=== PATIENT | female | born 1960 | race Caucasian/White ===

== ENCOUNTER 2017-01-16 14:46 | Emergency (ER) | payer OTHER ==
[2017-01-16 14:54] VITALS: BP 108/72; PULSE 64; TEMP 97.9; O2SAT 99
--- NOTE | 2017-01-16 15:11 | C.PDOC ---
History Of Present Illness 56 yo female come in for evaluation of pain over left lower gums gradually worsen for past 2 weeks. Pt denies known trauma or injury, fever, chills, facial swelling, trismus, drooling, headache, dizziness, earache, or any other active complaints. Pt admits, last visit to dentist was 3 weeks ago. Time Seen by Provider: 01/16/17 15:02 Chief Complaint (Nursing): Abnormal Skin Integrity History Per: Patient Onset/Duration Of Symptoms: Gradual Current Symptoms Are (Timing): Worse Past Medical History Reviewed: Historical Data, Nursing Documentation, Vital Signs Vital Signs: Last Vital Signs Temp 97.9 F 01/16/17 14:53 Pulse 64 01/16/17 14:53 Resp 18 01/16/17 14:53 BP 108/72 01/16/17 14:53 Pulse Ox 99 01/16/17 15:14 - Medical History PMH: Arthritis, Gastritis Family History: States: No Known Family Hx - Social History Hx Tobacco Use: No Hx Alcohol Use: No Hx Substance Use: No - Immunization History Hx Tetanus Toxoid Vaccination: No Hx Influenza Vaccination: No Hx Pneumococcal Vaccination: No Review Of Systems Except As Marked, All Systems Reviewed And Found Negative. Constitutional: Negative for: Fever, Chills ENT: Positive for: Mouth Pain. Negative for: Ear Discharge, Nose Discharge, Nose Congestion, Mouth Swelling, Throat Pain, Throat Swelling Cardiovascular: Negative for: Chest Pain Respiratory: Negative for: Cough, Shortness of Breath, Wheezing Gastrointestinal: Negative for: Nausea, Vomiting Skin: Negative for: Rash Neurological: Negative for: Weakness, Numbness, Altered Mental Status, Headache , Dizziness Physical Exam - Physical Exam Appears: Well, Non-toxic, No Acute Distress Skin: Normal Color, Warm Head: Normacephalic Eye(s): bilateral: Normal Inspection Ear(s): Bilateral: Normal Nose: Normal, No Discharge Oral Mucosa: Moist, No Drooling Tongue: Normal Appearing Lips: Normal Appearing Teeth: Dentures, No Tender To Palpation Gingiva: Ulceration (Left lower 2nd molar small ulcer inner gingiva. No edema, no erythema.), No Abscess Throat: Normal, No Erythema, No Exudate, No Drooling, Other (uvula midline, no edema.) Neck: Normal, Normal ROM, Supple Respiratory: Normal Breath Sounds, No Stridor, No Wheezing Extremity: Normal ROM, No Pedal Edema Neurological/Psych: Oriented x3, Normal Speech ED Course And Treatment O2 Sat by Pulse Oximetry: 99 Pulse Ox Interpretation: Normal Progress Note: On re-eavl, pt is afebrile, hemodynamicaly stable. Non-toxic. PulsEOx 99% RA. Neck: (-) meningeal sign. ENT: exam c/w Left lower gum tender ulcer. Lungs: CTA B/L, BS equal B/L. Pt advised and ref. to F/u with Dentist in 2-3 days for re-evaluation. Return to ED if any worsening or new changes. Disposition Counseled Patient/Family Regarding: Diagnosis, Need For Followup, Rx Given - Disposition Referrals: [facility] [Provider Group] [facility] [Provider Group] Disposition: HOME/ ROUTINE Disposition Time: 15:12 Condition: STABLE Additional Instructions: Avoid hot/ spicy food Use mouth wash as prescribed pain medication as need Follow up with dentist in 2-3 days for re-evaluation. Return to Ed if any new changes. Prescriptions: Chlorhexidine Gluconate [Peridex 473 ml] 5 ml PO TID #1 bottle traMADol [Ultram] 50 mg PO TID #7 tab Instructions: Gingivostomatitis (ED) - Clinical Impression Clinical Impression: Gingivostomatitis
[2017-01-16 15:26] VITALS: RESP 20
== END 2017-01-16 15:25 | disposition home or self-care (01) ==
LOC: C.ER 14:46
DX: K05.10 Chronic gingivitis, plaque induced (principal)

== ENCOUNTER 2017-03-06 21:15 | Emergency (ER) | payer OTHER ==
[2017-03-06 21:35] VITALS: RESP 16; TEMP 98; O2SAT 100
--- NOTE | 2017-03-06 21:54 | C.PDOC ---
History Of Present Illness 57 year old patient, with a past medical history of gastritis, presents to the ED complaining of fatigue for the past week. Patient also complains of left sided abdominal pain since yesterday. She has discomfort in the suprapubic area with associated symptom of burning with urination. Patient denies fever, chills , nausea, vomiting, numbness, weakness or incontinence. She states the pain is constant at this time. She had a normal bowel movement this afternoon and has been able toeat and drink without difficulty. Time Seen by Provider: 03/06/17 21:38 Chief Complaint (Nursing): Abdominal Pain History Per: Patient History/Exam Limitations: no limitations Onset/Duration Of Symptoms: Worse Since (yesterday), Other (past week) Current Symptoms Are (Timing): Still Present Context: Other Severity: Mild Pain Scale Rating Of: 3 Location Of Pain/Discomfort: Suprapubic Radiation Of Pain To:: None Quality Of Discomfort: "Pain" Associated Symptoms: Urinary Symptoms Exacerbating Factors: None Alleviating Factors: None Last Bowel Movement: Today Recent travel outside of the [place]: No Abnormal Vaginal Bleeding: No Past Medical History Reviewed: Historical Data, Nursing Documentation, Vital Signs Vital Signs: Last Vital Signs Temp 98.0 F 03/06/17 21:32 Pulse 70 03/07/17 00:00 Resp 16 03/07/17 00:00 BP 118/74 03/07/17 00:00 Pulse Ox 100 03/07/17 00:04 - Medical History PMH: Arthritis, Gastritis Family History: States: Unknown Family Hx - Social History Hx Tobacco Use: No Hx Alcohol Use: Yes Hx Substance Use: No - Immunization History Hx Tetanus Toxoid Vaccination: No Hx Influenza Vaccination: No Hx Pneumococcal Vaccination: No Review Of Systems Except As Marked, All Systems Reviewed And Found Negative. Constitutional: Positive for: Other (fatigue). Negative for: Fever, Chills Gastrointestinal: Positive for: Abdominal Pain (suprapubic). Negative for: Nausea, Vomiting Genitourinary: Positive for: Dysuria. Negative for: Incontinence Neurological: Negative for: Weakness, Numbness Physical Exam - Physical Exam Appears: Non-toxic, No Acute Distress Skin: Warm, Dry Head: Atraumatic, Normacephalic Eye(s): bilateral: Normal Inspection, PERRL, EOMI Ear(s): Bilateral: Normal Nose: Normal Oral Mucosa: Moist Throat: Normal Neck: Normal ROM, Supple Chest: Symmetrical Cardiovascular: Rhythm Regular Respiratory: Normal Breath Sounds, No Rales, No Rhonchi, No Wheezing Gastrointestinal/Abdominal: Bowel Sounds (normal), Soft, Tenderness (mild suprapubic and LLQ tenderness), No Guarding, No Rebound, Other ((+)mild tenderness to left mid to lower hypogastrium; (-)rigidity) Back: Normal Inspection, No CVA Tenderness Extremity: Normal ROM Neurological/Psych: Oriented x3, Normal Motor, Normal Sensation Gait: Steady ED Course And Treatment - Laboratory Results Result Diagrams: 03/06/17 21:57 03/06/17 21:57 Lab Interpretation: Normal O2 Sat by Pulse Oximetry: 100 (room air) Pulse Ox Interpretation: Normal Progress Note: Patient states she continues to have LLQ pain. Ct abdomen and pelvis ordered. Medical Decision Making Medical Decision Making: Plan: * Labs Disposition - Disposition Disposition Time: 00:16 Condition: STABLE - Clinical Impression Clinical Impression: Abdominal pain - Scribe Statement The provider has reviewed the documentation as recorded by the Scribra Arnold Provider Attestation: All medical record entries made by the Scribe were at my direction and personally dictated by me. I have reviewed the chart and agree that the record accurately reflects my personal performance of the history, physical exam, medical decision making, and the department course for this patient. I have also personally directed, reviewed, and agree with the discharge instructions and disposition. Physician Patient Turnover Patient Signed Over To: Junior García Handoff Comments: pending CT
[2017-03-06 22:01] LABS: BASO # 0.1 K/uL (0.0-0.2); BASO % 0.8 % (0.0-2.0); EOS # 0.3 K/uL (0.0-0.7); EOS % 3.5 % (0.0-4.0); HEMATOCRIT 38.1 % (34.0-47.0); LYMPH # 3.9 K/uL (1.0-4.3); LYMPH % 44.9 % (20.0-40.0); MEAN CORPUSCULAR HEMOGLOBIN 28.3 pg (27.0-31.0); MEAN CORPUSCULAR HGB CONC 32.9 g/dL (33.0-37.0); MEAN PLATELET VOLUME 8.9 fL (7.2-11.7); MONO # 0.8 K/uL (0.0-0.8); MONO % 8.7 % (0.0-10.0); WHITE BLOOD COUNT 8.8 K/uL (4.8-10.8)
[2017-03-06 22:08] LABS: CHLORIDE 98 mmol/L (98-107); RBC URINE < 1 /hpf (0-3); URINE BILIRUBIN NEGATIVE (NEGATIVE); URINE BLOOD 1+ (NEGATIVE); URINE COLOR Straw (YELLOW); URINE GLUCOSE (UA) NORMAL (Normal); URINE KETONE NEGATIVE (NEGATIVE); URINE LEUKOCYTE ESTERASE NEG Leu/uL (Negative); URINE PROTEIN NEGATIVE (NEGATIVE); URINE UROBILINOGEN NORMAL mg/dL (0.2-1.0); WBC URINE 2 /hpf (0-5)
[2017-03-06 22:09] LABS: SODIUM 135 mmol/L (132-148)
[2017-03-06 22:11] LABS: ALKALINE PHOSPHATASE 67 U/L (38-126); ALT/SGPT 29 U/L (9-52); AST/SGOT 28 U/L (14-36); BILIRUBIN,TOTAL 0.5 mg/dL (0.2-1.3); BLOOD UREA NITROGEN 19 mg/dL (7-17); CARBON DIOXIDE 28 mmol/L (22-30); GFR AFRICAN-AMERICAN > 60; GLUCOSE,RANDOM 109 mg/dL (65-105); TOTAL PROTEIN 7.2 g/dL (6.3-8.3)
[2017-03-06 22:12] LABS: CALCIUM 8.2 mg/dl (8.6-10.4)
[2017-03-06] MEDS ORDERED: Iohexol 240 (50 ml) PO ONE (22:17)
[2017-03-06] MEDS ORDERED: Iohexol 240 (50 ml) ONE (22:30)
[2017-03-06] MEDS ORDERED: Iodixanol 320 MG/ML 100 ML BOTTLE IV ONE (23:20)
[2017-03-07 00:14] VITALS: BP 118/74; PULSE 70
--- NOTE | 2017-03-07 00:35 | CT ---
EXAM: CT Abdomen and Pelvis With Intravenous Contrast CLINICAL HISTORY: 57 years old, female; Pain; Abdominal pain; Flank; Left; Additional info: Llq pain TECHNIQUE: Axial computed tomography images of the abdomen and pelvis with intravenous contrast. This CT exam was performed using one or more of the following dose reduction techniques: automated exposure control, adjustment of the mA and/or kV according to patient size, and/or use of iterative reconstruction technique. Coronal and sagittal reformatted images were created and reviewed. CONTRAST: 100 mL of visipaque administered intravenously. COMPARISON: No relevant prior studies available. FINDINGS: Lower thorax: The bilateral lung bases are clear. ABDOMEN: Liver: No acute findings. Gallbladder and bile ducts: The gallbladder is only minimally distended, without calcified stones. No significant intra- or extrahepatic biliary ductal dilation. Pancreas: Enhances homogeneously. No ductal dilation. No discrete mass. Spleen: No acute findings. Adrenals: No acute findings. Kidneys and ureters: No acute findings. No hydronephrosis or renal calculi. No discrete solid mass. PELVIS: Bladder: No acute findings. Reproductive: The uterus is heterogeneous and nodular, for which dedicated ultrasound would provide additional information. The uterus extends to the left of midline, is anteverted and larger than one would expect for a patient of this age. Appendix: The appendix is not definitively visualized, however no pericecal inflammatory changes identified to suggest the presence of acute appendicitis. ABDOMEN and PELVIS: Stomach and bowel: No obstruction. Small bowel wall thickening but no surrounding inflammation or fluid to confirm an acute enteritis. Peritoneum: No significant fluid collection. No free air. Lymph nodes: No pathologically enlarged lymph nodes. Vasculature: Unremarkable. Bones: No acute fracture. IMPRESSION: Enlarged, heterogeneous and nodular uterus, for which dedicated pelvic ultrasound is suggested for further evaluation. Mural thickening within multiple loops of small bowel within the mid to upper abdomen, to the left of midline, without surrounding inflammation or fluid to confirm an enteritis.
== END 2017-03-07 01:15 | disposition home or self-care (01) ==
LOC: C.ER 21:15
DX: R10.32 Left lower quadrant pain (principal)
CPT/HCPCS: 74177; 80053; 81001; 85025; 87086; 99283; Q9966; Q9967

== ENCOUNTER 2017-03-29 11:24 | Emergency (ER) | payer OTHER ==
[2017-03-29 11:40] VITALS: RESP 20
[2017-03-29 12:12] LABS: RBC URINE 2 /hpf (0-3); URINE BILIRUBIN NEGATIVE (NEGATIVE); URINE BLOOD NEGATIVE (NEGATIVE); URINE COLOR Yellow (YELLOW); URINE GLUCOSE (UA) NORMAL (Normal); URINE KETONE NEGATIVE (NEGATIVE); URINE LEUKOCYTE ESTERASE NEG Leu/uL (Negative); URINE PROTEIN NEGATIVE (NEGATIVE); URINE UROBILINOGEN NORMAL mg/dL (0.2-1.0); WBC URINE 1 /hpf (0-5)
[2017-03-29] MEDS ORDERED: Sodium Chloride 0.9% 500 ML IV ONE (12:31)
--- NOTE | 2017-03-29 12:33 | C.PDOC ---
History Of Present Illness 57 y/o female presents to ED with complaints of left flank pain associated with burning sensation on urination and urinary frequency for 2 weeks. Patient also complains of bilateral leg swelling and sore throat. Denies any past medical problems. Otherwise, denies fevers, chills, cough, nausea, vomiting, or other associated symptoms. Time Seen by Provider: 03/29/17 12:08 Chief Complaint (Nursing): Female Genitourinary History Per: Patient History/Exam Limitations: no limitations Onset/Duration Of Symptoms: Days Current Symptoms Are (Timing): Still Present Recent travel outside of the [place]: No Past Medical History Reviewed: Historical Data, Nursing Documentation, Vital Signs Vital Signs: Last Vital Signs Temp 98 F 03/29/17 14:53 Pulse 60 03/29/17 14:53 Resp 20 03/29/17 14:53 BP 124/84 03/29/17 14:53 Pulse Ox 98 03/29/17 15:13 - Medical History PMH: Arthritis, Gastritis Family History: States: No Known Family Hx - Social History Hx Tobacco Use: No Hx Alcohol Use: Yes Hx Substance Use: No - Immunization History Hx Tetanus Toxoid Vaccination: No Hx Influenza Vaccination: No Hx Pneumococcal Vaccination: No Review Of Systems Except As Marked, All Systems Reviewed And Found Negative. Constitutional: Negative for: Fever ENT: Positive for: Throat Pain Cardiovascular: Negative for: Chest Pain Respiratory: Negative for: Cough, Shortness of Breath Gastrointestinal: Positive for: Other (flank pain ) Genitourinary: Positive for: Dysuria, Frequency Musculoskeletal: Negative for: Neck Pain Skin: Negative for: Rash Neurological: Negative for: Headache, Dizziness Physical Exam - Physical Exam Appears: Non-toxic, No Acute Distress Skin: Warm, Dry, No Rash Head: Atraumatic, Normacephalic Eye(s): bilateral: Normal Inspection, PERRL, EOMI Ear(s): Bilateral: Normal Nose: Normal Oral Mucosa: Moist Throat: Erythema (scant, pharyngeal), No Exudate, No Drooling Neck: Supple Chest: Symmetrical Cardiovascular: Rhythm Regular, No Friction Rub, No Murmur Respiratory: Normal Breath Sounds, No Rales, No Rhonchi, No Wheezing Gastrointestinal/Abdominal: Soft, No Tenderness, No Guarding, No Rebound, No Hernia Back: Normal Inspection, No CVA Tenderness Extremity: Normal ROM, Capillary Refill (< 2 sec. ) Neurological/Psych: Oriented x3, Normal Speech, Normal Cognition, Normal Motor Gait: Steady ED Course And Treatment - Laboratory Results Result Diagrams: 03/29/17 12:56 03/29/17 12:56 O2 Sat by Pulse Oximetry: 98 (RA) Pulse Ox Interpretation: Normal - CT Scan/US Chest X-Ray Other Rad Studies (CT/US): Read By Radiologist, Radiology Report Reviewed CT/US Interpretation: MPRESSION: No focal consolidation, significant pleural effusion, or definite pneumothorax identified. Left upper lobe opacity may reflect calcification or ossific excrescence at the level of the 1st anterior rib. Outpatient CT of the chest may be considered for further evaluation if indicated. Progress Note: Treated with Toradol, Tylenol and IVFs. Labs, CXR ordered and reviewed. Medical Decision Making Medical Decision Making: On re-exam, the patient reports improvement of symptoms. Lungs are CTA, heart is RRR, abdomen is soft, non-tender and patient is tolerating PO well. Ambulatory in the ED with steady gait. Follow up with the medical doctor within 1-2 days. Return if worsened. Disposition - Disposition Referrals: [facility] [Outside] Disposition: HOME/ ROUTINE Disposition Time: 15:07 Condition: GOOD Additional Instructions: Follow up with the medical doctor within 1-2 days. Return if worsened. Prescriptions: Azithromycin [Zithromax] 250 mg PO DAILY #6 tab Ibuprofen [Motrin] 600 mg PO TID #21 tab predniSONE [Prednisone] 10 mg PO BID #10 tab Instructions: Pharyngitis (ED), Viral Syndrome (ED) Print Language: YAKUT - Clinical Impression Clinical Impression: Pharyngitis, Leg edema - PA / [employer]NA[employer] / Resident Statement MD/DO has reviewed & agrees with the documentation as recorded. - Scribe Statement The provider has reviewed the documentation as recorded by the Kulwinder Hu All medical record entries made by the Kulwinder were at my direction and personally dictated by me. I have reviewed the chart and agree that the record accurately reflects my personal performance of the history, physical exam, medical decision making, and the department course for this patient. I have also personally directed, reviewed, and agree with the discharge instructions and disposition.
[2017-03-29] MEDS ORDERED: Sodium Chloride 0.9% 1,000 ML ONE (12:59)
--- NOTE | 2017-03-29 12:59 | RAD ---
HISTORY: leg swelling, pain COMPARISON: Chest x-ray performed 07/22/16 TECHNIQUE: Chest, one view. FINDINGS: LUNGS: No focal consolidation. Left upper lobe opacity may reflect calcification or ossific excrescence at the level of the 1st anterior rib. Please note that chest x-ray has limited sensitivity for the detection of pulmonary masses. PLEURA: No significant pleural effusion identified. No definite pneumothorax . CARDIOVASCULAR: The cardiomediastinal silhouette appears within normal limits of size. OSSEOUS STRUCTURES: Degenerative changes of the spine. VISUALIZED UPPER ABDOMEN: Unremarkable. OTHER FINDINGS: None. IMPRESSION: No focal consolidation, significant pleural effusion, or definite pneumothorax identified. Left upper lobe opacity may reflect calcification or ossific excrescence at the level of the 1st anterior rib. Outpatient CT of the chest may be considered for further evaluation if indicated.
[2017-03-29 13:01] LABS: BASO % 0.4 % (0.0-2.0); EOS # 0.1 K/uL (0.0-0.7); EOS % 1.4 % (0.0-4.0); HEMATOCRIT 39.1 % (34.0-47.0); LYMPH # 2.1 K/uL (1.0-4.3); LYMPH % 23.1 % (20.0-40.0); MEAN CELL VOLUME 85.9 fL (81.0-99.0); MEAN CORPUSCULAR HGB CONC 32.6 g/dL (33.0-37.0); MEAN PLATELET VOLUME 9.4 fL (7.2-11.7); MONO # 0.8 K/uL (0.0-0.8); MONO % 8.5 % (0.0-10.0); RED CELL DISTRIBUTION WIDTH 13.9 % (11.5-14.5); WHITE BLOOD COUNT 9.2 K/uL (4.8-10.8)
[2017-03-29 13:21] LABS: CHLORIDE 100 mmol/L (98-107); SODIUM 136 mmol/L (132-148)
[2017-03-29 13:23] LABS: AST/SGOT 23 U/L (14-36); BILIRUBIN,TOTAL 0.4 mg/dL (0.2-1.3); CARBON DIOXIDE 27 mmol/L (22-30); GFR AFRICAN-AMERICAN > 60
[2017-03-29 13:24] LABS: ALB/GLOB RATIO 0.9 (1.0-2.1); ALKALINE PHOSPHATASE 69 U/L (38-126); ALT/SGPT 30 U/L (9-52); BLOOD UREA NITROGEN 14 mg/dL (7-17); CALCIUM 8.6 mg/dl (8.6-10.4); GLUCOSE,RANDOM 81 mg/dL (65-105); TOTAL PROTEIN 7.1 g/dL (6.3-8.3)
[2017-03-29 13:36] VITALS: PULSE 60
[2017-03-29 14:54] VITALS: BP 124/84; TEMP 98
[2017-03-29 15:12] VITALS: O2SAT 98
== END 2017-03-29 15:16 | disposition home or self-care (01) ==
LOC: C.ER 11:24
DX: J02.9 Acute pharyngitis, unspecified (principal); R60.0 Localized edema
CPT/HCPCS: 71010; 80053; 81001; 83690; 83880; 85025; 96361; 96374; 99284; J1885; J7040

== ENCOUNTER 2017-06-24 20:00 | Emergency (ER) | payer SELFPAY ==
[2017-06-24 20:13] VITALS: O2SAT 96
[2017-06-24 20:50] LABS: URINE BILIRUBIN NEGATIVE (NEGATIVE); URINE BLOOD 1+ (NEGATIVE); URINE COLOR Straw (YELLOW); URINE GLUCOSE (UA) NORMAL (Normal); URINE KETONE NEGATIVE (NEGATIVE); URINE LEUKOCYTE ESTERASE NEG Leu/uL (Negative); URINE PROTEIN NEGATIVE (NEGATIVE); URINE UROBILINOGEN NORMAL mg/dL (0.2-1.0); WBC URINE < 1 /hpf (0-5)
[2017-06-24 20:56] LABS: RBC URINE 5 /hpf (0-3); URINE BACTERIA OCC (<OCC)
--- NOTE | 2017-06-24 20:57 | C.PDOC ---
History Of Present Illness Patient is a 57 y/o female who presents to the ED with complaints of right sided flank pain radiating to right suprapubic region for the past 3 days. Patient states pain worsens with urination associated with no hematuria. Patient also admits to right sided dental pain. Denies fever, nausea, or vomiting. Chief Complaint (Nursing): Female Genitourinary History Per: Patient History/Exam Limitations: no limitations Onset/Duration Of Symptoms: Days (x3 days. ) Current Symptoms Are (Timing): Still Present Associated Symptoms: Urinary Symptoms (hematuria and dysuria. ). denies: Fever , Nausea, Vomiting Recent travel outside of the [place]: No Past Medical History Reviewed: Historical Data, Nursing Documentation, Vital Signs Vital Signs: Last Vital Signs Temp 98.0 F 06/24/17 20:12 Pulse 76 06/24/17 20:12 Resp 16 06/24/17 20:12 BP 99/73 L 06/24/17 20:12 Pulse Ox 96 06/24/17 23:14 - Medical History PMH: Arthritis, Gastritis Surgical History: No Surg Hx Family History: States: Unknown Family Hx - Social History Hx Tobacco Use: No Hx Alcohol Use: Yes Hx Substance Use: No - Immunization History Hx Tetanus Toxoid Vaccination: No Hx Influenza Vaccination: No Hx Pneumococcal Vaccination: No Review Of Systems Constitutional: Negative for: Fever Cardiovascular: Negative for: Chest Pain Respiratory: Negative for: Shortness of Breath Gastrointestinal: Negative for: Nausea, Vomiting, Diarrhea Genitourinary: Positive for: Dysuria, Hematuria Physical Exam - Physical Exam Appears: Well, Non-toxic Skin: Normal Color, Warm, Dry, No Diaphoretic Head: Atraumatic, Normacephalic Oral Mucosa: Moist Gingiva: Erythema (upper lateral areas. ) Chest: Symmetrical Cardiovascular: Rhythm Regular, No Murmur Respiratory: Normal Breath Sounds, No Rales, No Rhonchi, No Wheezing Gastrointestinal/Abdominal: Soft, No Tenderness Back: CVA Tenderness (bilateral) Extremity: Normal ROM (x4) Neurological/Psych: Oriented x3, Normal Speech, Normal Cognition ED Course And Treatment - Laboratory Results Result Diagrams: 06/24/17 22:23 06/24/17 22:23 O2 Sat by Pulse Oximetry: 96 (room air) Pulse Ox Interpretation: Normal - CT Scan/US A/P Other Rad Studies (CT/US): Interpreted By Me, Read By Radiologist CT/US Interpretation: IMPRESSION: No evidence for bowel herniation, bowel obstruction, colitis, appendicitis or diverticulitis. No gross ureteral stone or obstructive uropathy is visualized. Disposition Counseled Patient/Family Regarding: Diagnosis - Disposition Referrals: [facility] [Outside] Disposition: HOME/ ROUTINE Disposition Time: 23:26 Condition: STABLE Additional Instructions: warm saline gargle, ff up with dentist Prescriptions: Amoxicillin [Amoxil 500 mg Cap] 500 mg PO Q8 #20 cap Ibuprofen [Motrin] 1 tab PO TID PRN #30 tab PRN Reason: Pain Instructions: Flank Pain (ED), Urinary Tract Infection in Women (ED), Gingivitis (ED) Forms: [facility] (Maori), Gen Discharge Inst Moldovan Print Language: UPPER SORBIAN - POA Present On Arrival: None - Clinical Impression Clinical Impression: Gingivitis, Urinary tract infection, Flank pain - Scribe Statement The provider has reviewed the documentation as recorded by the Scribra Snow All medical record entries made by the Ranjanaibra were at my direction and personally dictated by me. I have reviewed the chart and agree that the record accurately reflects my personal performance of the history, physical exam, medical decision making, and the department course for this patient. I have also personally directed, reviewed, and agree with the discharge instructions and disposition.
[2017-06-24] MEDS ORDERED: Sodium Chloride 0.9% 1,000 ML IV ONE (22:16)
[2017-06-24] MEDS ORDERED: Sodium Chloride 0.9% 1,000 ML ONE (22:21)
[2017-06-24 22:29] LABS: BASO % 0.6 % (0.0-2.0); EOS # 0.2 K/uL (0.0-0.7); EOS % 2.5 % (0.0-4.0); HEMATOCRIT 36.6 % (34.0-47.0); LYMPH # 2.3 K/uL (1.0-4.3); LYMPH % 34.7 % (20.0-40.0); MEAN CELL VOLUME 85.4 fL (81.0-99.0); MEAN CORPUSCULAR HGB CONC 32.8 g/dL (33.0-37.0); MONO # 0.7 K/uL (0.0-0.8); MONO % 9.6 % (0.0-10.0); RED CELL DISTRIBUTION WIDTH 14.1 % (11.5-14.5); WHITE BLOOD COUNT 6.7 K/uL (4.8-10.8)
[2017-06-24 22:34] LABS: CHLORIDE 104 mmol/L (98-107); SODIUM 137 mmol/L (132-148)
[2017-06-24 22:36] LABS: GFR AFRICAN-AMERICAN > 60
[2017-06-24 22:37] LABS: ALKALINE PHOSPHATASE 64 U/L (38-126); ALT/SGPT 36 U/L (9-52); AST/SGOT 23 U/L (14-36); BILIRUBIN,TOTAL 0.5 mg/dL (0.2-1.3); BLOOD UREA NITROGEN 14 mg/dL (7-17); CARBON DIOXIDE 24 mmol/L (22-30); GLUCOSE,RANDOM 88 mg/dL (65-105); TOTAL PROTEIN 6.8 g/dL (6.3-8.3)
[2017-06-24 22:38] LABS: CALCIUM 8.4 mg/dl (8.6-10.4)
[2017-06-24 23:29] VITALS: BP 109/69; PULSE 56; RESP 17; TEMP 97.5
[2017-06-24] MEDS ORDERED: Amoxicillin-Clav 500-125 mg Tab PO ONE (23:43)
--- NOTE | 2017-06-25 09:15 | CT ---
PROCEDURE: CT Abdomen and Pelvis without intravenous contrast HISTORY: flank pain COMPARISON: 03/07/2017 TECHNIQUE: Without contrast.. Contrast Dose: 0 Radiation dose: Total exam DLP = 398.34 mGy-cm. This CT exam was performed using one or more of the following dose reduction techniques: Automated exposure control, adjustment of the mA and/or kV according to patient size, and/or use of iterative reconstruction technique. FINDINGS: LOWER THORAX: 8 mm pleural-based nodule at left costophrenic sulcus. This is essentially unchanged from prior examination of 03/07/2017. A followup noncontrast chest CT examination is advised 6-12 months. LIVER: Unremarkable. No gross lesion or ductal dilatation. GALLBLADDER AND BILE DUCTS: Unremarkable. PANCREAS: Unremarkable. No gross lesion or ductal dilatation. SPLEEN: Unremarkable. ADRENALS: Unremarkable. No mass. KIDNEYS AND URETERS: Unremarkable. No hydronephrosis. No solid mass. VASCULATURE: Unremarkable. No aortic aneurysm. BOWEL: Unremarkable. No obstruction. No gross mural thickening. APPENDIX: Unremarkable. Normal appendix. PERITONEUM: Unremarkable. No free fluid. No free air. LYMPH NODES: Unremarkable. No enlarged lymph nodes. BLADDER: Unremarkable. REPRODUCTIVE: Normal uterus BONES: No acute fracture. OTHER FINDINGS: None. IMPRESSION: No evidence of urinary calculus or urinary tract obstruction. No evidence of diverticulitis or appendicitis. Incidental 8 mm nodule at left costophrenic sulcus. Followup noncontrast chest CT examination is advised in 6-12 months. Preliminary interpretation of this examination was reported by [facility] at 11:13 p.m. on 06/24/2017. There is discordance of this report with the preliminary interpretation. Left lower lobe pulmonary nodule was not described in the preliminary report of this examination.
== END 2017-06-24 23:56 | disposition home or self-care (01) ==
LOC: C.ER 20:00
DX: N39.0 Urinary tract infection, site not specified (principal); K05.10 Chronic gingivitis, plaque induced; R10.9 Unspecified abdominal pain
CPT/HCPCS: 74176; 80053; 81001; 83690; 84703; 85025; 85610; 85730; 87086; 96374; 99285; J1885; J7040

== ENCOUNTER 2018-05-19 16:35 | Emergency (ER) | payer OTHER ==
[2018-05-19 16:40] VITALS: O2SAT 98
[2018-05-19 17:05] LABS: BASO % 0.5 % (0.0-2.0); EOS # 0.2 K/uL (0.0-0.7); EOS % 2.9 % (0.0-4.0); HEMOGLOBIN 13.2 g/dL (11.0-16.0); LYMPH # 2.6 K/uL (1.0-4.3); LYMPH % 37.5 % (20.0-40.0); MEAN CELL VOLUME 86.4 fL (81.0-99.0); MEAN CORPUSCULAR HEMOGLOBIN 27.8 pg (27.0-31.0); MEAN CORPUSCULAR HGB CONC 32.2 g/dL (33.0-37.0); MEAN PLATELET VOLUME 8.8 fL (7.2-11.7); MONO # 0.6 K/uL (0.0-0.8); MONO % 8.1 % (0.0-10.0); NEUT # 3.5 K/uL (1.8-7.0); NRBC % 0.1 % (0.0-2.0); RBC 4.74 Mil/uL (3.80-5.20); RED CELL DISTRIBUTION WIDTH 13.4 % (11.5-14.5)
[2018-05-19] MEDS ORDERED: DiphenhydrAMINE 50 mg/ml Inj IVP STA (17:07)
[2018-05-19] MEDS ORDERED: Sodium Chloride 0.9% 1,000 ML IV STA (17:07)
[2018-05-19 17:09] LABS: SQUAMOUS EPITHIAL 5 /hpf (0-5); URINE BILIRUBIN NEGATIVE (NEGATIVE); URINE BLOOD NEGATIVE (NEGATIVE); URINE CLARITY Clear (Clear); URINE COLOR Straw (YELLOW); URINE GLUCOSE (UA) NORMAL (Normal); URINE LEUKOCYTE ESTERASE 2+ Leu/uL (Negative); URINE PROTEIN NEGATIVE (NEGATIVE); URINE UROBILINOGEN NORMAL mg/dL (0.2-1.0)
[2018-05-19 17:23] LABS: ALB/GLOB RATIO 1.2 (1.0-2.1); ALBUMIN 3.9 g/dL (3.5-5.0); ALT/SGPT 31 U/L (9-52); AMYLASE 58 U/L (30-110); AST/SGOT 23 U/L (14-36); BLOOD UREA NITROGEN 14 mg/dL (7-17); CALCIUM 9.1 mg/dl (8.6-10.4); GFR AFRICAN-AMERICAN > 60; GFR NON-AFRICAN AMERICAN > 60
[2018-05-19] MEDS ORDERED: Sodium Chloride 0.9% 1,000 ML ONE (17:23)
[2018-05-19] MEDS ORDERED: DiphenhydrAMINE 50 mg/ml Inj ONE (17:24)
--- NOTE | 2018-05-19 18:33 | C.PDOC ---
History Of Present Illness 58 year old female patient presents to the ER with c/o rashes. Patient states the rashes appear on her left side of face and diffuse rash on extremities for a week. Patient reports she went to the pharmacy and they gave her benadryl and steroid cream which brought no relief. Patient states rash is very pruritic . Denies fever, SOB, chills. Patient denies eating any new food, taking new medications, using any new skin products. Time Seen by Provider: 05/19/18 16:43 Chief Complaint (Nursing): Abnormal Skin Integrity History Per: Patient History/Exam Limitations: no limitations Onset/Duration Of Symptoms: Days (x1 week) Current Symptoms Are (Timing): Still Present Location Of Injury: Right: Arm, Forearm, Hand, Left: Arm, Face, Forearm, Hand Quality Of Symptoms: Itching Past Medical History Reviewed: Historical Data, Nursing Documentation, Vital Signs Vital Signs: Last Vital Signs Temp 98 F 05/19/18 19:27 Pulse 68 05/19/18 19:27 Resp 18 05/19/18 19:27 BP 117/71 05/19/18 19:27 Pulse Ox 98 05/19/18 19:27 - Medical History PMH: Arthritis, Gastritis Family History: States: Unknown Family Hx - Social History Hx Tobacco Use: No Hx Alcohol Use: Yes Hx Substance Use: No - Immunization History Hx Tetanus Toxoid Vaccination: No Hx Influenza Vaccination: No Hx Pneumococcal Vaccination: No Review Of Systems Except As Marked, All Systems Reviewed And Found Negative. Constitutional: Negative for: Fever, Chills Respiratory: Negative for: Shortness of Breath, Other (allergic reactions) Physical Exam - Physical Exam Appears: Well, Non-toxic, No Acute Distress Skin: Warm, Dry, Rash (erythematous maculo-papular rash on the left side of face and diffuse extremeties) Head: Atraumatic, Normacephalic Eye(s): bilateral: Normal Inspection Ear(s): Bilateral: Normal Neck: Normal ROM, Supple Chest: Symmetrical, No Deformity Cardiovascular: Rhythm Regular Respiratory: Normal Breath Sounds, No Rales, No Rhonchi, No Stridor, No Wheezing Gastrointestinal/Abdominal: Soft, No Tenderness Back: No CVA Tenderness Extremity: Normal ROM (x4) Neurological/Psych: Oriented x3, Normal Speech, Normal Motor, Normal Sensation, Normal Reflexes Gait: Steady ED Course And Treatment - Laboratory Results Result Diagrams: 05/19/18 16:45 05/19/18 16:45 O2 Sat by Pulse Oximetry: 98 (RA) Pulse Ox Interpretation: Normal Progress Note: Impression: very pruritic rash on left face and diffuse extremities. Plans: -- blood work. -- bendaryl. -- pepcid. -- methylPREDNIsolone. -- IV fluids. -- UA. Reassess: Patient is resting comfortably, tolerating PO, has no shortness of breath, has no intra-oral swelling, no stridor. Patient notes that pruritus has improved. Patient advised to follow up with PMD in 1-2 days. Disposition - Disposition Referrals: [facility] at [facility] [Outside] Disposition: HOME/ ROUTINE Disposition Time: 19:00 Condition: GOOD Additional Instructions: Follow up in Clinic within 1-2 days. Return to ED if feel worse. 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 - Scribe Statement The provider has reviewed the documentation as recorded by the Kulwinder Kaisre Do All medical record entries made by the Scribe were at my direction and personally dictated by me. I have reviewed the chart and agree that the record accurately reflects my personal performance of the history, physical exam, medical decision making, and the department course for this patient. I have also personally directed, reviewed, and agree with the discharge instructions and disposition.
[2018-05-19 19:28] VITALS: BP 117/71; PULSE 68; RESP 18; TEMP 98
== END 2018-05-19 19:27 | disposition home or self-care (01) ==
LOC: C.ER 16:35
DX: R21 Rash and other nonspecific skin eruption (principal)
CPT/HCPCS: 80053; 81001; 82150; 85025; 96361; 96374; 96375; 99284; J1200; J2930; J7030

== ENCOUNTER 2018-11-12 19:55 | Emergency (ER) | payer SELFPAY ==
--- NOTE | 2018-11-12 21:35 | C.PDOC ---
History Of Present Illness 58 year old female presents to the ED complaining of dysuria for one week. Associated symptoms include headache and myalgias. Denies any fever, chills, nausea, vomiting, diarrhea, hematuria, abdominal pain, back pain. Denies taking any medications at home. Time Seen by Provider: 11/12/18 20:17 Chief Complaint (Nursing): Female Genitourinary History Per: Patient History/Exam Limitations: no limitations Onset/Duration Of Symptoms: Days Current Symptoms Are (Timing): Still Present Associated Symptoms: Urinary Symptoms, Other (headache, myalgias ). denies: Fever, Chills, Nausea, Vomiting, Diarrhea Past Medical History Reviewed: Historical Data, Nursing Documentation, Vital Signs Vital Signs: Last Vital Signs Temp 98.4 F 11/12/18 20:10 Pulse 63 11/12/18 20:10 Resp 18 11/12/18 20:10 BP 99/64 L 11/12/18 20:10 Pulse Ox 100 11/12/18 20:10 - Medical History PMH: Arthritis, Gastritis Surgical History: No Surg Hx Family History: States: No Known Family Hx - Social History Hx Tobacco Use: No Hx Alcohol Use: Yes Hx Substance Use: No - Immunization History Hx Tetanus Toxoid Vaccination: No Hx Influenza Vaccination: No Hx Pneumococcal Vaccination: No Review Of Systems Except As Marked, All Systems Reviewed And Found Negative. Constitutional: Positive for: Other (myalgias ). Negative for: Fever, Chills Gastrointestinal: Negative for: Nausea, Vomiting, Abdominal Pain, Diarrhea Genitourinary: Positive for: Dysuria. Negative for: Hematuria, Vaginal Discharge, Vaginal Bleeding Musculoskeletal: Negative for: Back Pain Neurological: Positive for: Headache Physical Exam - Physical Exam Appears: Non-toxic, No Acute Distress Skin: Warm, Dry, No Rash Head: Normacephalic Eye(s): bilateral: Normal Inspection Nose: Normal Oral Mucosa: Moist Neck: Supple Chest: Symmetrical Cardiovascular: Rhythm Regular Respiratory: Normal Breath Sounds, No Rales, No Rhonchi, No Wheezing Gastrointestinal/Abdominal: Soft, No Tenderness Back: No CVA Tenderness Pelvic: Other (Pelvic exam deferred ) Neurological/Psych: Oriented x3, Normal Speech Gait: Steady ED Course And Treatment O2 Sat by Pulse Oximetry: 100 (RA) Pulse Ox Interpretation: Normal Progress Note: Patient treated with Motrin and Pyridium. Urine collected and sent to the lab for analysis. Urine culture collected. First dose of Macrobid PO given, and RX for macrobid, pyridium and motrin will be given. Pt will follow up with PMD. Return precautions were discussed Disposition - Disposition Referrals: [facility] at [facility] [Outside] Disposition: HOME/ ROUTINE Disposition Time: 21:55 Condition: STABLE Additional Instructions: Please follow up with PMD Take medications as directed Return to ER if worse Prescriptions: Ibuprofen [Motrin] 600 mg PO Q6H #20 tab Nitrofurantoin Macrocrystals [Macrobid] 1 cap PO BID #14 cap Phenazopyridine HCl [Pyridium] 100 mg PO TID #6 tab Instructions: Urinary Tract Infection, Adult (DC) Forms: [employer] (Surinamese) - Clinical Impression Clinical Impression: UTI (urinary tract infection) - 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 - Scribe Statement The provider has reviewed the documentation as recorded by the Scribe Pavithra Arzola All medical record entries made by the Kulwinder were at my direction and personally dictated by me. I have reviewed the chart and agree that the record accurately reflects my personal performance of the history, physical exam, medical decision making, and the department course for this patient. I have also personally directed, reviewed, and agree with the discharge instructions and disposition.
[2018-11-12 21:47] LABS: URINE BACTERIA RARE (<OCC); URINE BILIRUBIN NEGATIVE (NEGATIVE); URINE BLOOD 3+ (NEGATIVE); URINE CLARITY Hazy (Clear); URINE COLOR Straw (YELLOW); URINE GLUCOSE (UA) NORMAL (Normal); URINE LEUKOCYTE ESTERASE 3+ Leu/uL (Negative); URINE PROTEIN NEGATIVE (NEGATIVE); URINE UROBILINOGEN NORMAL mg/dL (0.2-1.0)
[2018-11-12 22:05] VITALS: BP 106/56; PULSE 84; RESP 16; TEMP 97.9
[2018-11-13 05:58] VITALS: O2SAT 100
== END 2018-11-12 22:10 | disposition home or self-care (01) ==
LOC: C.ER 19:55
DX: N39.0 Urinary tract infection, site not specified (principal)

== ENCOUNTER 2018-11-26 06:22 | Emergency (ER) | payer OTHER ==
[2018-11-26 06:32] VITALS: O2SAT 97
[2018-11-26] MEDS ORDERED: Albuterol-Ipratrop 3 mg / 0.5 (3 ml) UD INH STA (07:29)
[2018-11-26 08:51] VITALS: BP 109/70; PULSE 58; RESP 16; TEMP 98.7
--- NOTE | 2018-11-26 09:20 | RAD ---
Date of service: 11/26/2018 PROCEDURE: Radiographs of the Right Shoulder HISTORY: shoulder pain COMPARISON: No prior. FINDINGS: BONES: No acute cardiopulmonary disease appreciated. JOINTS: Degenerative cortical sclerosis seen at the glenohumeral joint and limited osteophyte development is seen at the superior margins of the acromioclavicular joint. Bone island noted at the lateral portion right humeral head. Calcific tendinosis seen in local soft tissues superolateral to the greater tuberosity right humeral head. SOFT TISSUES: As above. OTHER FINDINGS: None. IMPRESSION: No acute fracture, subluxation or dislocation identified. Degenerative changes glenohumeral and acromioclavicular joints. Calcific tendinosis.
--- NOTE | 2018-11-26 09:26 | C.PDOC ---
History Of Present Illness 58 years old female presents to ED for complaints of right shoulder pain that began 3 days ago. Patient describes pain worsens with movement and lifting arm. Patient reports she does a lot of moving and lifting at work. Denies trauma, numbness, weakness, or any other complaints. Time Seen by Provider: 11/26/18 07:24 Chief Complaint (Nursing): Upper Extremity Problem/Injury History Per: Patient History/Exam Limitations: no limitations Onset/Duration Of Symptoms: Days Current Symptoms Are (Timing): Still Present Quality: "Pain" Exacerbating Factor(s): Movement Recent travel outside of the [place]: No Past Medical History Reviewed: Historical Data, Nursing Documentation, Vital Signs Vital Signs: Last Vital Signs Temp 98.7 F 11/26/18 08:51 Pulse 58 L 11/26/18 08:51 Resp 16 11/26/18 08:51 BP 109/70 11/26/18 08:51 Pulse Ox 97 11/26/18 08:51 - Medical History PMH: Arthritis, Gastritis Surgical History: No Surg Hx Family History: States: Unknown Family Hx - Social History Hx Tobacco Use: No Hx Alcohol Use: No Hx Substance Use: No - Immunization History Hx Tetanus Toxoid Vaccination: No Hx Influenza Vaccination: No Hx Pneumococcal Vaccination: No Review Of Systems Except As Marked, All Systems Reviewed And Found Negative. Constitutional: Negative for: Fever, Chills Gastrointestinal: Negative for: Nausea, Vomiting, Diarrhea Musculoskeletal: Positive for: Shoulder Pain (Right ) Skin: Negative for: Rash Neurological: Negative for: Weakness, Numbness Physical Exam - Physical Exam Appears: Non-toxic, No Acute Distress Skin: Normal Color, Warm, Dry, No Rash Head: Atraumatic, Normacephalic Eye(s): bilateral: Normal Inspection, PERRL, EOMI Oral Mucosa: Moist Neck: Normal ROM, Supple Chest: Symmetrical, No Tenderness Cardiovascular: Rhythm Regular, No Murmur Respiratory: Normal Breath Sounds, No Rales, No Rhonchi, No Wheezing Gastrointestinal/Abdominal: Soft, No Tenderness Extremity: Tenderness (Anterior and lateral right shoulder. ), No Deformity, Other (Pain with AB duction of right shoulder. Hand and elbow normal. ) Extremity: Bilateral: Normal Color And Temperature Pulses: Left Radial: Normal, Right Radial: Normal Neurological/Psych: Oriented x3, Normal Speech Gait: Steady ED Course And Treatment O2 Sat by Pulse Oximetry: 97 (RA) Pulse Ox Interpretation: Normal - Other Rad Shoulder X-Ray X-Ray: Viewed By Me, Read By Radiologist Interpretation: Date of service: 11/26/2018. PROCEDURE: Radiographs of the Right Shoulder. HISTORY: shoulder pain. COMPARISON: No prior. FINDINGS: BONES: No acute cardiopulmonary disease appreciated. JOINTS: Degenerative cortical sclerosis seen at the glenohumeral joint and limited osteophyte development is seen at the superior margins of the acromioclavicular joint. Bone island noted at the lateral portion right humeral head. Calcific tendinosis seen in local soft tissues superolateral to the greater tuberosity right humeral head. SOFT TISSUES: As above. OTHER FINDINGS: None. IMPRESSION: No acute fracture, subluxation or dislocation identified. Degenerative changes glenohumeral and acromioclavicular joints. Calcific tendinosis. Medical Decision Making Medical Decision Making: Plan: * Duoneb * Toradol * Shoulder X-Ray Progress: Upon evaluation, patient states she feels better, denies any complaints at this time. Care instructions advised and patient is in agreement. Follow up with orthopedics. Patient is stable for discharge and will be discharged. Return if symptoms worsen or persist. Disposition - Disposition Referrals: Cris Barrett MD [Staff Provider] - Disposition: HOME/ ROUTINE Disposition Time: 09:24 Condition: GOOD Additional Instructions: Follow up with the medical doctor within 1-2 days. Return if worsened. 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 - Scribe Statement The provider has reviewed the documentation as recorded by the Ranjanaibra Hickman All medical record entries made by the Scribe were at my direction and personally dictated by me. I have reviewed the chart and agree that the record accurately reflects my personal performance of the history, physical exam, medical decision making, and the department course for this patient. I have also personally directed, reviewed, and agree with the discharge instructions and disposition.
== END 2018-11-26 09:39 | disposition home or self-care (01) ==
LOC: C.ER 06:22
DX: M75.91 Shoulder lesion, unspecified, right shoulder (principal)
CPT/HCPCS: 73030; 96372; 99284; J1885